=== PATIENT | female | born 1965 | race Caucasian/White ===

== ENCOUNTER → 2017-05-19 | Outpatient (CLI) | payer BC ==
[2017-05-19 08:54] LABS: Aty Lym Flag Slight; CH 28.4; CHCM 34.7; HCT 39.6 % (34.0-46.0); HDW 3.12; HGB 13.6 gm/dL (11.4-16.0); MCH 28.1 pg (25.0-35.0); MCHC 34.2 g/dL (31.0-37.0); MCV 82.1 fL (80.0-100.0); Mean Platelet Volume 6.2; RBC 4.83 m/uL (3.80-5.40); RDW 14.7 % (11.5-15.5); WBC 6.3 k/uL (3.8-10.6)
[2017-05-19 09:49] LABS: ALT 41 U/L (9-52); AST 20 U/L (14-36); Add Differential Manual Differential; Alkaline Phosphatase 75 U/L (38-126); Anion Gap 10 mmol/L; Blood Urea Nitrogen 9 mg/dL (7-17); Calcium 8.7 mg/dL (8.4-10.2); Carbon Dioxide 24 mmol/L (22-30); Chloride 107 mmol/L (98-107); Cholesterol 185 mg/dL (<200); Creatine Kinase 92 U/L (30-135); Glucose 103 mg/dL (74-99); HDL Cholesterol 60 mg/dL (40-60); Non-African American GFR(MDRD) >60 (>60 ml/min/1.73 sqM); Potassium 4.4 mmol/L (3.5-5.1); Sodium 141 mmol/L (137-145); Total Bilirubin 0.5 mg/dL (0.2-1.3); Total Protein 6.8 g/dL (6.3-8.2); Triglycerides 84 mg/dL (<150)
[2017-05-19 09:51] LABS: Manual Review Performed; Nucleated Red Blood Cells 0 /100 WBC (0-0); Total Cells Counted 100
[2017-05-19 09:52] LABS: RBC Morphology Normal
== END | disposition home or self-care (01) ==
LOC: LABWHC1 08:11
PROVIDERS: ATTEND Nurse Practitioner Family
DX: Z00.00 Encounter for general adult medical examination without abnormal findings (principal); I10 Essential (primary) hypertension; E03.9 Hypothyroidism, unspecified; E55.9 Vitamin D deficiency, unspecified; Z13.220 Encounter for screening for lipoid disorders
CPT/HCPCS: 36415; 80053; 80061; 82306; 82550; 84439; 84443; 84481; 85025; 86141

== ENCOUNTER → 2018-02-20 | Outpatient (CLI) | payer BC ==
--- NOTE | 2018-02-23 10:17 | MM ---
Reason for exam: screening (asymptomatic). Last mammogram was performed 1 year ago. History: Patient had first child at age 40. Family history of breast cancer in aunt. Benign excisional biopsy, 2017. Physical Findings: A clinical breast exam by your physician is recommended on an annual basis and results should be correlated with mammographic findings. MG 3D Screening Mammo W/Cad Bilateral CC, MLO, and XCCL view(s) were taken. Prior study comparison: February 14, 2017, mammogram, performed at [facility]. December 22, 2015, mammogram, performed at [facility]. November 30, 2015, mammogram, performed at [facility]. There are scattered fibroglandular densities. Finding: There are typically benign round calcifications in both breasts. Previous mammotome biopsy in the right breast. There is no discrete abnormality. ASSESSMENT: Benign, BI-RAD 2 RECOMMENDATION: Routine screening mammogram of both breasts in 1 year.
== END ==
LOC: RADMAMWWP 16:57
PROVIDERS: ATTEND Obstetrics & Gynecology
DX: Z12.31 Encounter for screening mammogram for malignant neoplasm of breast (principal)
CPT/HCPCS: 77063; 77067

== ENCOUNTER → 2018-03-05 | Outpatient (CLI) | payer BC ==
--- NOTE | 2018-03-05 16:24 | BD ---
EXAMINATION TYPE: MG DEXA axial skeleton. DATE OF EXAM: CLINICAL HISTORY: 52-year-old female postmenopausal screening for osteoporosis : no Height: 294 Weight: 64.25 FRAX RISK QUESTIONS: Alcohol (3 or more units per day): no Family History (Parent hip fracture): no Glucocorticoids (More than 3mos): no (Ex: prednisone, prednisolone, methylprednisolone, dexamethasone, and hydrocortisone). History of Fracture in Adulthood: no Secondary Osteoporosis: 1. Type 1 Diabetes: no 2. Hyperthyroidism: no 3. Menopause before 45: no 4. Malnutrition: no 5. Chronic liver disease: no Rheumatoid Arthritis: no Current Tobacco Use: yes RISK FACTORS HISTORY OF: Family History of Osteoporosis: no Active: yes Diet low in dairy products/other sources of calcium: no Postmenopausal woman: no If Premenopausal, do you have irregular periods: yes Take estrogen and/or progesterone medications: no Lost more than 2 inches in height since high school: no Frequent falls: no Poor Health: no Hyperparathyroidism: no Adrenal Insufficiency: no MEDICATIONS: Prednisone or other steroids: no Thyroid Medications: yes Which medication: Synthroid How Long: since patient was in her 20's Osteoporosis Medications: no Additional Medications: blood pressure meds; multivitamin, aspirin(baby) Additional History: none to note EXAM MEASUREMENTS: Bone mineral densitometry was performed using the [employer] System. Bone mineral density as measured about the Lumbar spine is: ----- L1-L4(G/cm2): 1.346 T Score Values are as follows: ----- L2: 1.5 ----- L3: 1.3 ----- L4: 0.8 ----- L1-L4: 1.4 Bone mineral density BASELINE Bone mineral density about the R hip (g/cm2): 1.079 Bone mineral density about the L hip (g/cm2): 1.096 T Score values are as follows: -----R Neck: 0.4 -----L Neck: 0.3 -----R Total: 1.7 -----L Total: 2.0 Bone mineral density BASELINE IMPRESSION: Normal (Values between +1 and -1 indicate normal bone mass). Consider repeating this study in 5 year s or sooner if there is some new clinical indication. NOTE: T-SCORE=SD OF THE YOUNG ADULT MEAN.
== END | disposition home or self-care (01) ==
LOC: RADBDWWP 09:12
PROVIDERS: ATTEND Obstetrics & Gynecology
DX: Z13.820 Encounter for screening for osteoporosis (principal)
CPT/HCPCS: 77080

== ENCOUNTER 2018-03-06 08:36 | Day surgery (SDC) | payer BC ==
[2018-03-04 09:52] VITALS: BMI 49.9
[~2018-03-06 08:36] MED LIST: LACTATED RINGERS 1,000 ML IV SCH; LIDOCAINE 1% 20 ML VIAL (10MG/ML) FOR IV START INTRADERMA PRN
[2018-03-06 09:32] VITALS: TEMP 97.9
[2018-03-06] MEDS ORDERED: LIDOCAINE 1% INJ 10MG/ML (20 ML MDV) ONE (10:08)
[2018-03-06] MEDS ORDERED: PROPOFOL 10 MG/ML 20 ML VIAL IV ONE (10:08)
--- NOTE | 2018-03-06 10:48 | P.PCN ---
Date of Procedure: 03/06/18 Procedure(s) Performed: BRIEF HISTORY: Patient is a 52-year-old pleasant white female, scheduled for an elective colonoscopy as a part of screening for colorectal neoplasia. PROCEDURE PERFORMED: Colonoscopy. PREOPERATIVE DIAGNOSIS: For colon cancer. IV sedation per Anesthesia. PROCEDURE: After informed consent was obtained, the patient, was brought into the endoscopy unit. IV sedation was administered by Anesthesia under continuous monitoring. Digital rectal examination was normal. Initially the Olympus CF- 160 flexible video colonoscope was then inserted in the rectum, gradually advanced into the cecum without any difficulty. Careful examination was performed as the scope was gradually being withdrawn. Ileocecal valve and the appendiceal orifice were visualized and appeared normal. Prep was fair.. Mucosa of the cecum, ascending colon, transverse colon, descending colon, sigmoid colon, and rectum appeared normal. Retroflexion was performed in the rectum and no lesions were seen. The patient tolerated the procedure well. IMPRESSION: Normal-appearing colon from rectum to cecum with no evidence of colorectal neoplasia . RECOMMENDATIONS: Findings of this examination were discussed with the patient as well as a family. She was advised to have a repeat screening colonoscopy in 10 years.
[2018-03-06 11:08] VITALS: BP 95/65; PULSE 71; RESP 18
== END 2018-03-06 11:41 | disposition home or self-care (01) ==
LOC: ORWHC2ENDO 08:36
PROVIDERS: ATTEND Internal Medicine Gastroenterology
DX: Z12.11 Encounter for screening for malignant neoplasm of colon (principal); I10 Essential (primary) hypertension; G47.33 Obstructive sleep apnea (adult) (pediatric); Z99.89 Dependence on other enabling machines and devices; E07.9 Disorder of thyroid, unspecified; Z79.82 Long term (current) use of aspirin; Z79.899 Other long term (current) drug therapy; Z88.0 Allergy status to penicillin
CPT/HCPCS: 81025; J2001; J2704; G0121

== ENCOUNTER → 2019-11-22 | Outpatient (CLI) | payer BC ==
--- NOTE | 2019-11-26 11:13 | MM ---
Reason for exam: screening (asymptomatic). Last mammogram was performed 1 year and 9 months ago. History: Patient is postmenopausal and had first child at age 40. Family history of breast cancer in aunt. Benign excisional biopsy, 2017. Physical Findings: A clinical breast exam by your physician is recommended on an annual basis and results should be correlated with mammographic findings. MG 3D Screening Mammo W/Cad Bilateral CC, MLO, and XCCL view(s) were taken. Prior study comparison: February 20, 2018, bilateral MG 3d screening mammo w/cad. February 14, 2017, mammogram, performed at [facility]. There are scattered fibroglandular densities. Finding #1: There is a 8 mm obscured round mass in the anterior, central position of the left breast. Finding #2: There are typically benign calcifications in both breasts. Previous mammotome biopsy in the right breast. There is no discrete abnormality. ASSESSMENT: Incomplete: need additional imaging evaluation, BI-RAD 0 RECOMMENDATION: Special view mammogram of the right breast. If lesion persists on supplemental views, image directed ultrasound is recommended. [facility] will attempt to contact patient to return for supplemental views and ultrasound if indicated.
== END | disposition home or self-care (01) ==
LOC: RADMAMWWP 10:57
PROVIDERS: ATTEND Obstetrics & Gynecology
DX: Z12.31 Encounter for screening mammogram for malignant neoplasm of breast (principal)
CPT/HCPCS: 77063; 77067

== ENCOUNTER → 2020-05-19 | Outpatient (CLI) | payer BC ==
[2020-05-19 09:53] LABS: Basophils % (A) 1 %; Eosinophils # (A) 0.2 k/uL (0-0.7); Eosinophils % (A) 4 %; HCT 39.3 % (34.0-46.0); HGB 13.1 gm/dL (11.4-16.0); Lymphocytes % (A) 36 %; MCH 28.2 pg (25.0-35.0); MCHC 33.4 g/dL (31.0-37.0); MCV 84.6 fL (80.0-100.0); Mean Platelet Volume 6.4; Monocytes # (A) 0.4 k/uL (0-1.0); Monocytes % (A) 6 %; Neutrophils # (A) 2.7 k/uL (1.3-7.7); Neutrophils % (A) 50 %; Platelet Count 273 k/uL (150-450); RBC 4.65 m/uL (3.80-5.40); RDW 14.6 % (11.5-15.5); WBC 5.5 k/uL (3.8-10.6)
[2020-05-19 16:50] LABS: African American GFR (CKD) 120.6 (60.0-200.0); Albumin 4.5 g/dL (3.80-4.90); Albumin/Globulin Ratio 2.25 (1.60-3.17); Anion Gap 8.4 mmol/L (4.00-12.00); BUN/Creat Ratio 21.67 Ratio (12.00-20.00); Calcium 9.1 mg/dL (8.7-10.3); Carbon Dioxide 26.6 mmol/L (21.6-31.8); Chol/HDL Ratio 3.76; LDL Cholesterol,Calculated 131.4 mg/dL (0.0-131.0); Non-African American GFR(CKD) 104.1 (60.0-200.0); Potassium 4.2 mmol/L (3.5-5.5); Total Bilirubin 0.6 mg/dL (0.2-1.2); Total Protein 6.5 g/dL (6.2-8.2); VLDL Calculation 20.6 mg/dL (5.00-40.00)
[2020-05-19 16:57] LABS: T4, Free (Free Thyroxine) 1.5 ng/dL (0.80-1.80)
== END | disposition home or self-care (01) ==
LOC: LABWHC1 09:04
PROVIDERS: ATTEND Family Medicine
DX: I10 Essential (primary) hypertension (principal); E03.9 Hypothyroidism, unspecified; E78.00 Pure hypercholesterolemia, unspecified; Z11.59 Encounter for screening for other viral diseases
CPT/HCPCS: 36415; 80053; 80061; 84439; 84443; 84481; 85025; 86803

== ENCOUNTER → 2020-06-14 | Outpatient (CLI) | payer BC ==
--- NOTE | 2020-06-14 10:15 | US ---
EXAMINATION TYPE: US liver DATE OF EXAM: 06/14/2020 COMPARISON: US 2011 CLINICAL HISTORY: R74.8 elevated liver enzymes. Elevated liver enzymes EXAM MEASUREMENTS: Liver Length: 18.5 cm Gallbladder Wall: 0.2 cm CBD: 0.4 cm Right Kidney: 13.3 x 6.4 x 6.1 cm Difficult study due to patient body habitus Pancreas: wnl Liver: enlarged, attenuating, mildly heterogeneous Gallbladder: wnl Evidence for sonographic Garza's sign: no CBD: wnl Right Kidney: wnl IMPRESSION: Hepatomegaly with underlying fatty hepatic infiltration.
== END | disposition home or self-care (01) ==
LOC: RADUSWWP 09:30
PROVIDERS: ATTEND Family Medicine
DX: K76.0 Fatty (change of) liver, not elsewhere classified (principal)
CPT/HCPCS: 76705

== ENCOUNTER → 2020-12-26 | Outpatient (CLI) | payer BC ==
--- NOTE | 2020-12-28 11:50 | MM ---
Reason for exam: screening (asymptomatic). Last mammogram was performed 1 year and 1 month ago. History: Patient is postmenopausal and had first child at age 40. Family history of breast cancer in aunt. Benign excisional biopsy, 2017. Physical Findings: A clinical breast exam by your physician is recommended on an annual basis and results should be correlated with mammographic findings. MG 3D Screening Mammo W/Cad Bilateral CC and MLO view(s) were taken. Prior study comparison: November 22, 2019, bilateral MG 3d screening mammo w/cad. February 20, 2018, bilateral MG 3d screening mammo w/cad. February 14, 2017, mammogram, performed at [facility]. There are scattered fibroglandular densities. Previous mammotome biopsy in the right breast. No significant changes when compared with prior studies. ASSESSMENT: Benign, BI-RAD 2 RECOMMENDATION: Routine screening mammogram of both breasts in 1 year.
== END | disposition home or self-care (01) ==
LOC: RADMAMWWP 16:04
PROVIDERS: ATTEND Obstetrics & Gynecology
DX: Z12.31 Encounter for screening mammogram for malignant neoplasm of breast (principal)
CPT/HCPCS: 77063; 77067

== ENCOUNTER → 2022-02-25 | Outpatient (CLI) | payer BC ==
--- NOTE | 2022-02-26 15:12 | MM ---
Reason for exam: screening (asymptomatic). Last mammogram was performed 1 year and 2 months ago. History: Patient is postmenopausal and had first child at age 40. Family history of breast cancer in aunt. Benign excisional biopsy, 2017. Physical Findings: A clinical breast exam by your physician is recommended on an annual basis and results should be correlated with mammographic findings. MG 3D Screening Mammo W/Cad Bilateral CC and MLO view(s) were taken. Prior study comparison: December 26, 2020, bilateral MG 3d screening mammo w/cad. December 09, 2019, left breast MG 3d work up w/cad LT. No significant changes when compared with prior studies. ASSESSMENT: Benign, BI-RAD 2 RECOMMENDATION: Routine screening mammogram of both breasts in 1 year.
== END | disposition home or self-care (01) ==
LOC: RADMAMWWP 14:29
PROVIDERS: ATTEND Obstetrics & Gynecology
DX: Z12.31 Encounter for screening mammogram for malignant neoplasm of breast (principal)
CPT/HCPCS: 77063; 77067

== ENCOUNTER → 2023-02-26 | Outpatient (CLI) | payer BC ==
--- NOTE | 2023-02-27 09:08 | MM ---
Reason for Exam: Screening (asymptomatic). Last screening mammogram was performed 12 month(s) ago. Patient History: Menarche at age 15. First Full-Term at age 40. Late child-bearing (after 30). Postmenopausal. Benign Excisional Biopsy. Maternal aunt had breast cancer. Risk Values: Elise 5 year model risk: 1.9%. NCI Lifetime model risk: 13.1%. Prior Study Comparison: 12/09/2019 Left Diagnostic Mammogram, [facility]. 12/26/2020 Bilateral Screening Mammogram, [facility]. 02/25/2022 Bilateral Screening Mammogram, [facility]. Tissue Density: The breast tissue is almost entirely fat. Findings: Analyzed By CAD. Right biopsy clip. There is no suspicious group of microcalcifications or new suspicious mass in either breast. Overall Assessment: Negative, BI-RAD 1 Management: Screening Mammogram of both breasts in 1 year. A clinical breast exam by your physician is recommended on an annual basis and results should be correlated with mammographic findings. [facility] will attempt to contact patient to return for supplemental views and ultrasound if indicated. Electronically signed and approved by: Chino Phoenix DO
== END | disposition home or self-care (01) ==
LOC: RADMAMWWP 08:03
PROVIDERS: ATTEND Obstetrics & Gynecology
DX: Z12.31 Encounter for screening mammogram for malignant neoplasm of breast (principal); Z78.0 Asymptomatic menopausal state; Z80.3 Family history of malignant neoplasm of breast
CPT/HCPCS: 77063; 77067

== ENCOUNTER → 2024-07-20 | Outpatient (CLI) | payer BC | END | disposition home or self-care (01) | LOC: LABWHC1 08:32 | PROVIDERS: ATTEND Student in an Organized Health Care Education/Training Program | DX: R94.39 Abnormal result of other cardiovascular function study | CPT/HCPCS: 36415; 80061; 84481; 86141 ==

== ENCOUNTER 2024-07-22 08:12 | Day surgery (SDC) | payer BC ==
[2024-07-22] MEDS ORDERED: SODIUM CHLORIDE 0.9% 1,000 ML BAG ONE ×3 (08:59→10:40)
[2024-07-22] MEDS ORDERED: HEPARIN SODIUM,PORCINE 5,000 UNIT/ML 1 ML VIAL ONE (10:29)
[2024-07-22] MEDS ORDERED: SODIUM CHLORIDE 0.9% 250 ML BAG ONE ×2 (10:29→10:40)
[2024-07-22] MEDS ORDERED: LIDOCAINE 1% INJ 10MG/ML (20 ML MDV) ONE (10:39)
[2024-07-22] MEDS ORDERED: VERAPAMIL 2.5 MG/ML 2 ML AMP ONE (10:39)
[2024-07-22] MEDS ORDERED: HEPARIN SODIUM,PORCINE 10,000 UNIT/ML 1 ML VIAL ONE (10:40)
[2024-07-22] MEDS ORDERED: MIDAZOLAM 2 MG/2 ML VIAL ONE (10:40)
[2024-07-22] MEDS ORDERED: HEPARIN SODIUM 1,000 UN/ML (10ML VL) ONE (10:40)
[2024-07-22] MEDS ORDERED: fentaNYL (PF) 50 MCG/ML 2 ML AMP ONE (10:40)
[2024-07-22] MEDS: IOPAMIDOL-370 100ML BTL INJ ONE (10:55)
[2024-07-22] MEDS ORDERED: ACETAMINOPHEN TAB 500 MG TAB ONE (14:02)
== END 2024-07-22 14:43 | disposition home or self-care (01) ==
LOC: CATHCVL 08:12
PROVIDERS: ATTEND Student in an Organized Health Care Education/Training Program
DX: R94.39 Abnormal result of other cardiovascular function study
CPT/HCPCS: 93458